=== PATIENT | male | born 1960 | race Caucasian/White ===

== ENCOUNTER 2019-03-12 13:11 | Outpatient (REF) | payer MEDICAID, SELFPAY ==
[2019-03-12 19:21] LABS: ALT 84 U/L (16-63); AST 35 U/L (15-37); Albumin 3.8 g/dL (3.4-5.0); Alkaline Phosphatase 208 U/L (46-116); Anion Gap 12.2 mmol/L (3-11); BUN 20 mg/dL (7-18); Bilirubin, Total 0.8 mg/dL (0.2-1.0); CO2 23.8 mmol/L (21.0-32.0); CREATININE 1.45 mg/dL (0.70-1.30); Calcium 8.8 mg/dL (8.5-10.1); Chloride 99 mmol/L (98-107); Estimated GFR 49.99 (mL/min/1.73m2); Glucose 480 mg/dL (70-100); Potassium 4.7 mmol/L (3.5-5.1); Sodium 135 mmol/L (136-145); Total Protein 7.6 g/dL (6.4-8.2)
== END 2019-03-12 13:31 ==
LOC: NCHCN 13:11
PROVIDERS: PCP Family Medicine; Visit Provider Family Medicine
DX: I10 Essential (primary) hypertension (principal); E11.9 Type 2 diabetes mellitus without complications
CPT/HCPCS: 80053

== ENCOUNTER 2019-06-15 21:27 | Outpatient (REF) | payer MEDICAID, SELFPAY ==
[2019-06-15 22:35] LABS: ALT 45 U/L (16-63); AST 26 U/L (15-37); Alkaline Phosphatase 181 U/L (46-116); BUN 26 mg/dL (7-18); Bilirubin, Total 0.8 mg/dL (0.2-1.0); CREATININE 1.36 mg/dL (0.70-1.30); Calcium 9.2 mg/dL (8.5-10.1); Chloride 102 mmol/L (98-107); Estimated GFR 53.64 (mL/min/1.73m2); Glucose 284 mg/dL (74-106); Potassium 4.6 mmol/L (3.5-5.1); Sodium 138 mmol/L (136-145); Total Protein 7.5 g/dL (6.4-8.2)
[2019-06-15 23:36] LABS: GGT 305 U/L (15-85)
[2019-06-17 11:33] LABS: Hepatitis C Ab w Rflx HCV PCR Negative (Negative)
[2019-06-17 12:26] LABS: HIV-1/2 Ag & Ab Screen Negative (Negative)
== END 2019-06-15 21:47 ==
LOC: NCHCN 21:27
PROVIDERS: PCP Family Medicine; Visit Provider Family Medicine
DX: N28.9 Disorder of kidney and ureter, unspecified (principal); R79.89 Other specified abnormal findings of blood chemistry; Z11.4 Encounter for screening for human immunodeficiency virus [HIV]; Z11.59 Encounter for screening for other viral diseases
CPT/HCPCS: 80053; 86803; 87389; 82977

== ENCOUNTER 2020-01-21 13:21 | Outpatient (REF) | payer MEDICAID, SELFPAY ==
[2020-01-21 19:22] LABS: ALT 43 U/L (16-63); AST 26 U/L (15-37); Albumin 3.9 g/dL (3.4-5.0); Alkaline Phosphatase 182 U/L (46-116); Anion Gap 10.6 mmol/L (3-11); BUN 20 mg/dL (7-18); Bilirubin, Total 0.9 mg/dL (0.2-1.0); CO2 25.4 mmol/L (21.0-32.0); CREATININE 1.44 mg/dL (0.70-1.30); Calcium 8.9 mg/dL (8.5-10.1); Chloride 97 mmol/L (98-107); Estimated GFR 50.21 (mL/min/1.73m2); Glucose 440 mg/dL (74-106); Potassium 4.6 mmol/L (3.5-5.1); Sodium 133 mmol/L (136-145); Total Protein 7.5 g/dL (6.4-8.2)
[2020-01-21 19:24] LABS: Hemoglobin A1C 9.6 % (3.8-5.6)
[2020-01-21 19:31] LABS: GGT 332 U/L (15-85)
[2020-01-24 10:12] LABS: Hepatitis B Surface Ag Negative (Negative)
== END 2020-01-21 13:41 ==
LOC: NCHCN 13:21
PROVIDERS: PCP Family Medicine; Visit Provider Family Medicine
DX: E11.9 Type 2 diabetes mellitus without complications (principal); R79.89 Other specified abnormal findings of blood chemistry; N28.9 Disorder of kidney and ureter, unspecified; F40.01 Agoraphobia with panic disorder; F43.20 Adjustment disorder, unspecified; R74.8 Abnormal levels of other serum enzymes
CPT/HCPCS: 80053; 87340; 82977; 83036

== ENCOUNTER 2021-08-02 18:26 | Outpatient (REF) | payer MEDICAID, SELFPAY ==
[2021-08-02 12:40] LABS: Hemoglobin A1C 11.3 % (<5.7)
[2021-08-02 12:46] LABS: ALT 36 U/L (16-63); AST 19 U/L (15-37); Albumin 3.7 g/dL (3.4-5.0); Alkaline Phosphatase 224 U/L (46-116); BUN 17 mg/dL (7-18); Bilirubin, Total 0.6 mg/dL (0.2-1.0); CREATININE 1.3 mg/dL (0.70-1.30); Calcium 8.9 mg/dL (8.5-10.1); Chloride 100 mmol/L (98-107); Estimated GFR 56.12 (mL/min/1.73m2); Potassium 4.8 mmol/L (3.5-5.1); Sodium 134 mmol/L (136-145); Total Protein 7.2 g/dL (6.4-8.2)
[2021-08-02 12:50] LABS: Glucose 527 mg/dL (74-106)
== END 2021-08-02 18:27 | disposition home or self-care (01) ==
LOC: NCHCN 18:26
PROVIDERS: PCP Family Medicine; Visit Provider Family Medicine
DX: E11.9 Type 2 diabetes mellitus without complications (principal); R79.89 Other specified abnormal findings of blood chemistry; N28.9 Disorder of kidney and ureter, unspecified; I10 Essential (primary) hypertension
CPT/HCPCS: 80053; 83036

== ENCOUNTER 2022-03-05 18:11 | Outpatient (REF) | payer MEDICAID, SELFPAY ==
[2022-03-05 17:18] LABS: Hemoglobin A1C 7.3 % (<5.7)
[2022-03-06 18:14] LABS: PSA, Screening 0.9 ng/mL (<=4.5)
== END 2022-03-05 18:12 | disposition home or self-care (01) ==
LOC: NCHCN 18:11
PROVIDERS: PCP Family Medicine; Visit Provider Family Medicine
DX: E11.9 Type 2 diabetes mellitus without complications (principal); Z12.5 Encounter for screening for malignant neoplasm of prostate
CPT/HCPCS: 84153; 83036

== ENCOUNTER 2022-04-25 15:11 | Outpatient (REF) | payer MEDICAID, SELFPAY | END 2022-04-25 15:12 | disposition home or self-care (01) | LOC: NCHCN 15:11 | PROVIDERS: PCP Family Medicine; Visit Provider Family Medicine | DX: L03.114 Cellulitis of left upper limb (principal) | CPT/HCPCS: 87077; 87070; 87186; 87205 ==

== ENCOUNTER 2023-05-23 16:24 | Outpatient (REF) | payer MEDICAID, SELFPAY ==
[2023-05-23 14:21] LABS: HCT 48.3 % (40.0-50.0); HGB 16.8 g/dL (13.5-17.5); MCH 29.4 pg (27.0-33.0); MCHC 34.8 % (32.0-36.0); MCV 84 fL (80-95); MPV 9.6 fL (8.0-11.0); Platelet Count 161 10^3/uL (130-400); RBC 5.72 10^6/uL (4.36-5.78); RDW 12.9 % (11.8-14.1); RDW-SD 39.7 fL; WBC 9.46 10^3/uL (4.4-10.8)
[2023-05-23 14:44] LABS: ALT 32 U/L (16-63); AST 19 U/L (15-37); Alkaline Phosphatase 175 U/L (46-116); Anion Gap 10.8 mmol/L (3-11); BUN 25 mg/dL (7-18); Bilirubin, Total 0.6 mg/dL (0.2-1.0); CO2 26.2 mmol/L (21.0-32.0); CREATININE 1.3 mg/dL (0.70-1.30); Calcium 9.9 mg/dL (8.5-10.1); Calculated LDL 44 mg/dL (<100); Chloride 101 mmol/L (98-107); Cholesterol 98 mg/dL (<200); Estimated GFR 62.11 (mL/min/1.73m2); Glucose 125 mg/dL (74-106); HDL Cholesterol 33 mg/dL (40-60); Potassium 4.6 mmol/L (3.5-5.1); Sodium 138 mmol/L (136-145); Total Protein 8.4 g/dL (6.4-8.2); Triglyceride 109 mg/dL (<150)
== END 2023-05-23 16:25 | disposition home or self-care (01) ==
LOC: NCHCN 16:24
PROVIDERS: PCP Family Medicine; Visit Provider Family Medicine
DX: E11.9 Type 2 diabetes mellitus without complications (principal); I10 Essential (primary) hypertension; K76.6 Portal hypertension; R79.89 Other specified abnormal findings of blood chemistry
CPT/HCPCS: 80053; 80061; 85027

== ENCOUNTER 2023-09-23 11:55 | Outpatient (REF) | payer MEDICAID, SELFPAY ==
[2023-09-23 16:05] LABS: Anion Gap 11.2 mmol/L (3-11); BUN 25 mg/dL (7-18); CO2 23.8 mmol/L (21.0-32.0); CREATININE 1.3 mg/dL (0.70-1.30); Calcium 9.2 mg/dL (8.5-10.1); Chloride 102 mmol/L (98-107); Estimated GFR 61.73 (mL/min/1.73m2); Glucose 264 mg/dL (74-106); Potassium 4.2 mmol/L (3.5-5.1); Sodium 137 mmol/L (136-145)
[2023-09-23 16:32] LABS: Hemoglobin A1C 7.1 % (<5.7)
== END 2023-09-23 11:56 | disposition home or self-care (01) ==
LOC: NCHCN 11:55
PROVIDERS: PCP Family Medicine; Referring Provider Family Medicine; Visit Provider Family Medicine
DX: E11.9 Type 2 diabetes mellitus without complications (principal); I10 Essential (primary) hypertension
CPT/HCPCS: 80048; 83036

== ENCOUNTER 2025-02-17 14:48 | Outpatient (REF) | payer MEDICAID, SELFPAY ==
[2025-02-17 15:23] LABS: Abs Immature Grans 0.02 10^3/uL (0.0-0.06); HCT 46.8 % (40.0-50.0); HGB 16.3 g/dL (13.5-17.5); Immature Grans % 0.3 %; MCH 29.0 pg (27.0-33.0); MCHC 34.8 % (32.0-36.0); MCV 83 fL (80-95); MPV 10.3 fL (8.0-11.0); Platelet Count 128 10^3/uL (130-400); RBC 5.63 10^6/uL (4.36-5.78); RDW 12.8 % (11.8-14.1); RDW-SD 38.8 fL; WBC 7.01 10^3/uL (4.4-10.8)
[2025-02-17 15:54] LABS: Hemoglobin A1C 8.2 % (<5.7)
[2025-02-17 15:56] LABS: ALT 57 U/L (16-63); AST 29 U/L (15-37); Albumin 4.2 g/dL (3.4-5.0); Alkaline Phosphatase 185 U/L (46-116); Anion Gap 9.6 mmol/L (3-11); BUN 28 mg/dL (7-18); Bilirubin, Total 0.7 mg/dL (0.2-1.0); CO2 25.4 mmol/L (21.0-32.0); Calcium 9.5 mg/dL (8.5-10.1); Calculated LDL 70 mg/dL (<100); Chloride 100 mmol/L (98-107); Cholesterol 145 mg/dL (<200); Estimated GFR 56.13 (mL/min/1.73m2); Glucose 259 mg/dL (74-106); HDL Cholesterol 32 mg/dL (>or=40); Potassium 4.2 mmol/L (3.5-5.1); Sodium 135 mmol/L (136-145); Total Protein 8.1 g/dL (6.4-8.2); Triglyceride 216 mg/dL (<150)
== END 2025-02-17 14:49 | disposition home or self-care (01) ==
LOC: NCHCN 14:48
PROVIDERS: PCP Family Medicine; Visit Provider Family Medicine
DX: I10 Essential (primary) hypertension (principal); Z79.4 Long term (current) use of insulin; E78.5 Hyperlipidemia, unspecified; Z13.0 Encounter for screening for diseases of the blood and blood-forming organs and certain disorders involving the immune mechanism
CPT/HCPCS: 80053; 80061; 83036; 85025

== ENCOUNTER 2025-05-20 12:47 | Outpatient (REF) | payer MEDICARE, MEDICAID, SELFPAY ==
[2025-05-20 15:53] LABS: Abs Immature Grans 0.01 10^3/uL (0.0-0.06); HCT 46.5 % (40.0-50.0); HGB 16.1 g/dL (13.5-17.5); Immature Grans % 0.2 %; MCH 29.7 pg (27.0-33.0); MCHC 34.6 % (32.0-36.0); MCV 86 fL (80-95); MPV 10.3 fL (8.0-11.0); Platelet Count 111 10^3/uL (130-400); RBC 5.43 10^6/uL (4.36-5.78); RDW 12.9 % (11.8-14.1); RDW-SD 39.9 fL; WBC 6.21 10^3/uL (4.4-10.8)
[2025-05-20 16:23] LABS: ALT 36 U/L (16-63); AST 21 U/L (15-37); Albumin 4.0 g/dL (3.4-5.0); Alkaline Phosphatase 149 U/L (46-116); Anion Gap 12.0 mmol/L (3-11); BUN 27 mg/dL (7-18); Bilirubin, Total 0.7 mg/dL (0.2-1.0); CO2 22.0 mmol/L (21.0-32.0); Calcium 8.8 mg/dL (8.5-10.1); Chloride 105 mmol/L (98-107); Glucose 156 mg/dL (74-106); Potassium 4.2 mmol/L (3.5-5.1); Sodium 139 mmol/L (136-145); Total Protein 7.5 g/dL (6.4-8.2)
[2025-05-20 17:00] LABS: Hemoglobin A1C 7.2 % (<5.7)
== END 2025-05-20 12:48 | disposition home or self-care (01) ==
LOC: NCHCN 12:47
PROVIDERS: PCP Family Medicine; Visit Provider Family Medicine
DX: E11.9 Type 2 diabetes mellitus without complications (principal); D69.6 Thrombocytopenia, unspecified; I10 Essential (primary) hypertension
CPT/HCPCS: 80053; 83036; 85025